=== PATIENT | male | born 1980 | race Two or more races ===

== ENCOUNTER 2017-12-29 14:58 | Emergency (ER) | payer OTHER ==
[~2017-12-29] VITALS: Ht 167.6 cm; Wt 95.7 kg
[~2017-12-29 14:58] MED LIST: CYCLOBENZAPRINE10 MG PO; NAPROXEN500 MG PO
[2017-12-29] MEDS ORDERED: AZO BLADDER CO300 MG PO (15:22)
== END 2017-12-29 17:40 | disposition home or self-care (01) ==
LOC: ED 14:58
DX: R10.32 Left lower quadrant pain (principal); Z87.891 Personal history of nicotine dependence; Z79.899 Other long term (current) drug therapy
CPT/HCPCS: 74177; 80053; 81001; 85025; 99284; Q9967

== ENCOUNTER 2021-04-16 17:42 | Emergency (ER) | payer BC ==
[~2021-04-16] VITALS: Ht 167.6 cm; Wt 95.7 kg
[~2021-04-16 17:42] MED LIST changes: +AZO BLADDER CO300 MG PO
--- NOTE | 2021-04-16 21:16 | EKG ---
[facility] [address] [facility] [place], [place] [address] Signed Normal sinus rhythm Normal ECG No previous ECGs available Confirmed by SADI LEE MD ([id number]) on 04/16/2021 9:16:10 PM Electronically Signed By: SADI LEE MD 04/16/212115 PATIENT NAME: DIANE SR JAX Electrocardiogram DATE OF : [birth year] PHYSICIAN: SADI LEE MD REPORT #: [id number] REPORT IS CONFIDENTIAL AND NOT TO BE RELEASED WITHOUT AUTHORIZATION
== END 2021-04-16 19:35 | disposition home or self-care (01) ==
LOC: ED 17:42
DX: R07.89 Other chest pain (principal); Z87.891 Personal history of nicotine dependence
CPT/HCPCS: 71046; 80053; 83735; 84484; 85025; 93005; 93010; 99285-25

== ENCOUNTER 2024-10-28 13:45 | Observation (INO) | payer BC ==
[~2024-10-28] VITALS: Ht 167.6 cm; Wt 84.1 kg
[2024-10-28] MEDS ORDERED: HYDROmorphone HCL 1 MG/ML SYR IV ONE ×2 (15:45→16:45)
[2024-10-28 17:00] LABS: BASOPHILS 0.4 % (0-2); EOSINOPHILS 1.7 % (0-6); HEMATOCRIT 47.4 % (35.0-50.0); HEMOGLOBIN 16.1 g/dL (12.0-18.0); LYMPHOCYTES 16.2 % (24-44); MCH 29.4 (27-36); MCV 86.4 fl (81-99); MONOCYTES 7.8 % (0-12); NEUTROPHILS 73.9 % (39-80); PLATELET COUNT 234 K/uL (140-440); RBC 5.48 M/ul (4.3-5.7); RDW 14.4 (10.5-15.0)
[2024-10-28] MEDS ORDERED: SODIUM CHLORIDE 0.9% 1,000 ML IV PRN (17:00)
[2024-10-28] MEDS ORDERED: ondansetron HCL 4 MG/2 ML VIAL IV ONE (17:00)
[2024-10-28 17:16] LABS: ALBUMIN/GLOBULIN RATIO 1.18 (1.1-2.4); ANION GAP 9.3 (7-21); BILIRUBIN, TOTAL 0.6 mg/dL (0.2-1.0); BUN/CREATININE RATIO 14.04 (6.0-28.6); CREATININE, SERUM 1.21 mg/dL (0.70-1.30); POTASSIUM 4.3 mmol/L (3.5-5.1); PROTEIN, TOTAL 7.4 g/dL (6.4-8.2)
[2024-10-28] MEDS ORDERED: SEVOFLURANE 250 ML BTL INH ONE (18:03)
[2024-10-28] MEDS ORDERED: HYDROmorphone HCL 1 MG/ML SYR IV PRN ×2 (19:15→22:15)
[2024-10-28] MEDS ORDERED: ondansetron HCL 4 MG/2 ML VIAL IV PRN ×3 (19:15→21:15)
[2024-10-28] MEDS ORDERED: LACTATED RINGER'S 1,000 ML IV SCH ×2 (19:15→20:30)
[2024-10-28 20:06] VITALS: BP 114/76
--- NOTE | 2024-10-28 20:20 | NUR ---
PATIENT BROUGHT TO ROOM FROM ED IN A WHEELCHAIR. PATIENT ABLE TO SELF TRANSFER FROM WHEEL CHAIR TO BED. PATIENTS ADMISSION COMPLETED. IV INFUSING PER ORDER. PATIENT DENIES ANY PAIN OR NAUSEA. PATIENTS VITALS TAKEN AND RECORDED. PATIENT UPDATED ON PLAN OF CARE AND ALL QUESTIONS ANSWERED. DR BRUNER AT BEDSIDE.
[2024-10-28] MEDS ORDERED: LACTATED RINGER'S 1,000 ML IV ONE (20:30)
[2024-10-28] MEDS ORDERED: KETOROLAC TROMETHAMINE 30 MG/ML VIAL IV PRN (20:30)
[2024-10-28] MEDS ORDERED: CEFAZOLIN SODIUM 2 GM/20 ML SYR IV ONE (20:30)
[2024-10-28] MEDS ORDERED: KETOROLAC TROMETHAMINE 30 MG/ML VIAL ONE (20:54)
[2024-10-28] MEDS ORDERED: propofoL 200 MG/20 ML VIAL ONE (20:54)
[2024-10-28] MEDS ORDERED: ondansetron HCL 4 MG/2 ML VIAL ONE (20:54)
[2024-10-28] MEDS ORDERED: DEXAMETHASONE SOD PHOS 4 MG/ML VIAL ONE (20:54)
[2024-10-28] MEDS ORDERED: SUGAMMADEX SODIUM 200 MG/2 ML ML ONE (20:55)
[2024-10-28] MEDS ORDERED: LIDOCAINE HCL 2% 5 ML SDV ONE (20:55)
[2024-10-28] MEDS ORDERED: ROCURONIUM BROMIDE 50 MG/5 ML SYR ONE (20:55)
[2024-10-28] MEDS ORDERED: MIDAZOLAM HCL 2 MG/2 ML VIAL ONE (20:55)
[2024-10-28] MEDS ORDERED: fentaNYL citrate 100 MCG/2 ML VIAL ONE (20:55)
[2024-10-28] MEDS ORDERED: FAMOTIDINE 20 MG/ 2 ML VIAL IV SCH (21:00)
[2024-10-28] MEDS ORDERED: fentaNYL citrate 50 MCG/ML SDV IV PRN (21:15)
[2024-10-28] MEDS ORDERED: IBLOOD GLUCOSE TEST STRIP 1 EA TEST VI PRN (21:15)
[2024-10-28] MEDS ORDERED: NALOXONE HCL 0.4 MG SYR IV PRN (21:15)
[2024-10-28] MEDS ORDERED: MIDAZOLAM HCL 2 MG/2 ML VIAL IV PRN (21:15)
[2024-10-28] MEDS ORDERED: ACETAMINOPHEN 1,000 MG/100 ML VIAL ONE (21:21)
[2024-10-28] MEDS ORDERED: ePHEDrine sulfate 50 MG/ML AMP ONE (21:39)
--- NOTE | 2024-10-28 22:18 | NUR ---
10/28/242217 Rosalia Donaldson 2199-PT ARRIVES TO PACU VIA STRETCHER, RESTING SEMI FOWLERS, PT NOT RESPONSIVE TO NOXIOUS STIMULI, OPA IN PLACE, MANUAL JAW THRUST REQUIRED, VSS ON 6L VIA MASK. 2204-MANUAL JAW THRUST NO LONGER NEEDED, OPA REMAINS IN PLACE, VSS ON 6L VIA MASK. 2208-PT AWAKENS ON OWN, OPA REMOVED, AND TITRATED TO RA. VSS, RR EVEN AND UNLABORED. 2209- AT BEDSIDE DISCUSSING PROCEEDURE RESULTS AND PLAN OF CARE W/ PT, ALL QUESTIONS ANSWERED. PT DENIES PAIN OR NAUSEA.
[2024-10-28 22:30] VITALS: BP 105/46
[2024-10-28 22:41] VITALS: BP 105/46
[2024-10-28] MEDS ORDERED: OXYCODONE/APAP 7.5/325 TAB PO PRN (22:45)
[2024-10-28] MEDS ORDERED: ACETAMINOPHEN 500 MG TAB PO PRN (22:45)
[2024-10-28] MEDS ORDERED: IBUPROFEN 600 MG TAB PO PRN (22:45)
--- NOTE | 2024-10-28 22:46 | NUR ---
PATIENT BROUGHT TO THE FLOOR AT 2225 FROM PACU. PATIENT DENIES ANY PAIN. HE IS HUNGRY AND JUST WANTS TO EAT. PATIENT GIVEN JELLO AND CRACKERS. FAMILY AT BEDSIDE. SCD ON, CPOX ON. VITALS WNL. IV FLUIDS RUNNING. CALL LIGHT WITHIN REACH. DENIES ANY OTHER NEEDS AT THIS TIME.
[2024-10-28 23:27] VITALS: BP 111/71
[2024-10-28 23:29] VITALS: BP 111/71
--- NOTE | 2024-10-28 23:50 | NUR ---
HOURLY VITALS TAKEN ON PATIENT. FAMILY STILL AT BEDSIDE. SEE EMAR FOR MEDICATION FOR HEADACHE. DENIES NAUSEA. PATIENT TOLERATED A SANDWHICH BOX.
[2024-10-29 00:40] VITALS: BP 103/63
--- NOTE | 2024-10-29 00:45 | NUR ---
RECEIVED REPORT FROM DAY SHIFT RN. PATIENT IS RESTING IN BED. SIDNEY RN IN ROOM AT THIS TIME TO COMPLETE VITALS
--- NOTE | 2024-10-29 00:49 | NUR ---
IN ROOM FOR VS. pt COMPLAINS OF 6-7/10 "SHARP" ABDOMINAL PAIN. PRN PAIN MEDICATION ADMINISTERED. VSS. CALL LIGHT IN REACH. pt DENIES ADDITIONAL NEEDS.
[2024-10-29 02:02] VITALS: BP 108/73
--- NOTE | 2024-10-29 02:12 | NUR ---
PATIENTS VITALS TAKEN AND RECORDED. PATIENT DENIES THE NEED TO VOID. PATIENT DENIES ANY PAIN OR NAUSEA AT THIS TIME. PATIENTS MID ABD DRESSING IS C/D/I. PATIENT IS AAOX4. PATIENT DENIES ANY FURTHER NEEDS. IV INFUSING PER ORDER.
[2024-10-29 04:01] VITALS: BP 112/64
--- NOTE | 2024-10-29 04:21 | NUR ---
PATIENT UP TO BR A SBA. PATIENT ABLE TO VOID. PATIENT IS BACK IN BED RESTING. PATIENTS VITALS TAKEN AND RECORDED. INTAKE AND OUTPUT RECORDED. PATIENT DENIES ANY NAUSEA. PATIENT REPORTS 4/10 PAIN AND DENIES THE NEED FOR INTERVENTION AT THIS TIME. PATIENTS MID ABD DRESSING IS C/D/I. PATIENT DENIES ANY FURTHER NEEDS. CALL LIGHT IN REACH. SCDS IN PLACE. IV INFUSING PER ORDER.
[2024-10-29 04:23] VITALS: BP 112/64
--- NOTE | 2024-10-29 06:23 | NUR ---
PATIENT IS RESTING IN BED WATCHING TV. PATIENT REPORTS MID ABD PAIN AT A 7/10, PRN PAIN MEDICATION GIVEN PER ORDER. PATIENT PROVIDED FRESH ICE WATER. PATIENT DENIES ANY FURTHER NEEDS. CALL LIGHT IN REACH.
--- NOTE | 2024-10-29 07:26 | NUR ---
VERBAL REPORT RECEIVED FROM SUDHEER GUSMAN. PT RESTS IN BED AWAKE AND ALERT, VISITOR X1 AT BEDSIDE. CALL LIGHT IN REACH. NO REQUESTS AT THIS TIME.
--- NOTE | 2024-10-29 08:37 | NUR ---
PATIENT IN BED AT THIS TIME. OFFICE ASST PROVIDED PATIENT WITH COFFEE AND DID HOURLY ROUNDS. CALL LIGHT WITHIN REACH, NO FURTHER NEEDS.
[2024-10-29] MEDS ORDERED: OXYCODON-ACETA1 EAC2 PO (08:59)
[2024-10-29] MEDS ORDERED: IBUPROFEN600 MG PO (08:59)
[2024-10-29] MEDS ORDERED: ACETAMINOPHEN500 MG PO (08:59)
--- NOTE | 2024-10-29 09:23 | NUR ---
UR CLINICAL REVIEW: [facility], MEETS CRITERIA FOR HERNIA REPAIR (NON-HIATAL) INCARCERATED EPIGASTRIC HERNIA REQUIRED SURGICAL REPAIR MEETS DC CRITERIA THIS AMAnthony BONILLA PPO OBS 10/28/2024 @ 1914 ORDER MATCHES REG ATHORIZATION 10/28/24-11/02/2024 REFERENCE #[id number], WILL SEND CLINICALS TODAY PLAN TO DC TO HOME TODAY.
[2024-10-29 09:32] VITALS: BP 102/59
--- NOTE | 2024-10-29 09:33 | NUR ---
PATIENT IN BED AT THIS TIME. TRAIN OPERATIONS MANAGER CHARTED VITALS AND I&O'S. CALL LIGHT WITHIN REACH, NO FURTHER NEEDS AT THIS TIME.
--- NOTE | 2024-10-29 09:45 | HP ---
[facility] [address] [place], [place] [address] Signed ADMISSION DATE: 10/28/2024 REASON FOR ADMISSION: Incarcerated strangulated epigastric hernia. HISTORY OF PRESENT ILLNESS: This 44-year-old white man works at [employer] in the [place]. He lives alone, though has a girlfriend. He is accompanied by his parents. He is known to have a hernia in the midline long-term between the xiphoid and the umbilicus, which normally reduces spontaneously lying down and not straining. On , began having vague abdominal pain and the hernia did not really go away. It progressed over time and now it is exquisitely painful and tender and presented to the emergency room where he was thoroughly evaluated by Dr. Reyes confirming a nonreducible, very tender epigastric hernia. A CT scan was performed, which confirmed the contents of the hernia primarily to be fat, probably omentum of course. He is admitted for further evaluation and care. PAST MEDICAL HISTORY: Rather unremarkable. He has had no abdominal surgery in the past. He takes no medications on a routine basis. He does have a history of psoriasis and arthritis. ALLERGIES: He has no known drug allergies. SOCIAL HISTORY: He is a former smoker. He takes no medications on a routine basis. REVIEW OF SYSTEMS: He denies any shortness of breath or chest pain. He last ate yesterday, but no eating all day today. He has had no nausea or vomiting. PHYSICAL EXAMINATION: GENERAL: A pleasant white man, who does not look systemically toxic, but does look quite uncomfortable. He is accompanied by his two parents. VITAL SIGNS: Temperature is 98.4, pulse 60, blood pressure 120/56, O2 saturation 96% on room air. Trachea is midline. Mucous membranes are slightly dry. CHEST: Clear. HEART: Regular without murmur. ABDOMEN: Nondistended. Palpation is without tenderness except in the area of the midline long-term from the xiphoid to the umbilicus where exquisite tenderness is noted Electronically Signed By: KIRT BRUNER MD 10/29/24 0945 PATIENT NAME: DIANE SR HISTORY AND PHYSICAL DATE OF : [birth year] REPORT #: [id number] PHYSICIAN: KIRT BRUNER MD PCP: NO PRIMARY CARE PHYSICIAN REPORT IS CONFIDENTIAL AND NOT TO BE RELEASED WITHOUT AUTHORIZATION [facility] [address] [place], [place] [address] Signed and a nonreducible hernia is identified. EXTREMITIES: Show no clubbing, cyanosis, or edema. LABORATORY STUDIES: Show white count 9.8, hematocrit 47.4. Chem profile is essentially normal. Creatinine slightly elevated at 1.21. Lactic acid is 1.1. Liver enzymes normal. Albumin 4.0. ASSESSMENT: The patient has an incarcerated epigastric hernia. This has been a reducible hernia up until this past week now. It is certainly not reducible by any means and quite tender and likely with strangulation of the omentum that protruded from it. Imaging studies are quite clear about the finding without sign of hollow viscus. Nevertheless, given the extreme tenderness, pain and so forth that he suffers at this time, I believe the best approach in his case would be prompt operative intervention to include reduction of the hernia and repair of the defect. Depending on the viability of the omentum that is incarcerated, resection may be required. The defect itself is relatively high for an epigastric hernia and not excessively large, which of course may account for the extreme pain he is suffering. Mesh would be implanted if the defect is greater than 2 cm. Otherwise, a primary repair would be adequate. The risk of bleeding, infection, recurrence and so forth were reviewed with the patient and his parents. They understand and he wished to proceed. MD AUNDREA Ledbetter/MCL /[id number] cc: Dr. Reyes Copies: ~ Electronically Signed By: KIRT BRUNER MD 10/29/24 0945 PATIENT NAME: DIANE SR HISTORY AND PHYSICAL DATE OF : [birth year] REPORT #: [id number] PHYSICIAN: KIRT BRUNER MD PCP: NO PRIMARY CARE PHYSICIAN REPORT IS CONFIDENTIAL AND NOT TO BE RELEASED WITHOUT AUTHORIZATION
--- NOTE | 2024-10-29 10:10 | NUR ---
DISCUSSED DISCHARGE INSTRUCTIONS WITH PT AND SPOUSE. BOTH VERBALIZE UNDERSTANDING. IV REMOVED, TIP INTACT, GAUZE AND COBAN DRESSING APPLIED TO SITE, PT TOLERATED WELL. PT DRESSED SEFT AND GATHERED BELONGINGS. VSS. PT LEAVES UNIT AMBULATORY ESCORTED BY DEJON SANTANA TO FRONT EXIT TO PRIVATE CAR DRIVEN BY SPOUSE.
--- NOTE | 2024-10-29 15:52 | OR ---
[facility] [address] [place], [place] [address] Signed DATE OF OPERATION: 10/28/2024 SURGEON: Kirt Bruner MD PREOPERATIVE DIAGNOSIS: Incarcerated strangulated epigastric hernia. POSTOPERATIVE DIAGNOSIS: Incarcerated strangulated epigastric hernia. PROCEDURE: Repair of incarcerated strangulated epigastric hernia fascial defect 1.8 cm. ANESTHESIA: General endotracheal; Queenie Boles CRNA and local 10 mL of 0.25% Marcaine with epinephrine. INDICATION: This 44-year-old white man has had a long-standing hernia in epigastric areas, which normally spontaneously reduces. On , he began having pain in the area and the hernia would not reduce despite efforts to do so. The pain worsened to the point he was intolerable and he presented to the emergency room where he was evaluated by the emergency room physician noting the incarcerated very tender hernia in the epigastric area. A CT scan was performed which showed herniated fat and no hollow viscus. Given his severe tenderness and ongoing pain despite pain medication and so forth, he is now to undergo repair of the hernia, having undergone fluid resuscitation and so forth. The risk of bleeding, infection, recurrent hernia, and need for other indicated procedures, was reviewed with him and his parents who were with him. They understand, wished to proceed. FINDINGS: The fascial defect was at 1.8 cm. Herniated properitoneal fat was noted. It was inflamed and edematous, but certainly not infarcted in any way. The fascia was quite bernstein and did not require support with mesh. Primary closure was accomplished. DESCRIPTION OF PROCEDURE: The patient was brought to the operating room, given a general endotracheal anesthetic. Preoperative antibiotic Ancef was given. Sequential compression device stockings were used and heparin subcutaneously administered. The abdomen was clipped and prepared with Electronically Signed By: KIRT BRUNER MD 10/29/24 1552 PATIENT NAME: DIANE SR OPERATIVE REPORT DATE OF : [birth year] REPORT #: [id number] PHYSICIAN: KIRT BRUNER MD PCP: NO PRIMARY CARE PHYSICIAN REPORT IS CONFIDENTIAL AND NOT TO BE RELEASED WITHOUT AUTHORIZATION [facility] [address] [place], [place] [address] Signed a chlorhexidine solution and draped sterilely. The palpable mass was not reducible even with relaxation. An incision was made directly over it in a vertical configuration. Dissection was carried through the subcutaneous tissue identifying an edematous hernia sac with fatty tissue within the sac. It was skeletonized at the fascial layer, but could not be reduced despite that. On that basis, a right angle clamp was placed in the fascia cephalad in the defect, incising it with all due care using electrocautery. This allowed enough relaxation that the hernia sac could be more easily manipulated. It was opened and found to have properitoneal fat and a fair amount of inflammation. It was inverted into the properitoneal space as it was not infarcted. The defect was measured and found to be 1.8 cm. I would normally close such a defect in a transverse manner. On this occasion, a vertical closure was deemed more appropriate. The fascial edges were quite bernstein and mesh would not generally be required given the small size of the defect and the health of the fascial layer. The fascial defect was closed with interrupted 0 Prolene suture in a vertical mattress configuration. Irrigation was undertaken. 10 mL of 0.25% Marcaine was injected locally. The subcutaneous tissue was reapproximated with interrupted 2-0 Vicryl and the skin closed with running subcuticular 3-0 Vicryl. Steri-Strips were applied as was an Acticoat dressing. He was extubated in the operating room and taken to recovery room. Blood loss was minimal. Complications none. Sponge, needle and counts reported as correct x3. MD AUNDREA Ledbetter/MCL /[id number] cc: Elroy Connell Copies: ~ Electronically Signed By: KIRT BRUNER MD 10/29/24 1552 PATIENT NAME: DIANE SR OPERATIVE REPORT DATE OF : [birth year] REPORT #: [id number] PHYSICIAN: KIRT BRUNER MD PCP: NO PRIMARY CARE PHYSICIAN REPORT IS CONFIDENTIAL AND NOT TO BE RELEASED WITHOUT AUTHORIZATION
== END 2024-10-29 10:10 | disposition home or self-care (01) ==
LOC: ED 13:45 → MS 13:46
PROVIDERS: Emergency Medicine; ADMIT Surgery; ATTEND Surgery
PROC: 0WQF0ZZ Repair Abdominal Wall, Open Approach (ICD-10-PCS; principal; 2024-10-28 21:33)
DX: K43.6 Other and unspecified ventral hernia with obstruction, without gangrene (principal); Z87.891 Personal history of nicotine dependence
CPT/HCPCS: 00750; 36415; 74177; 80053; 83605; 83690; 85025; 94762; 96361; 96375; 96376; 99285-25; A9270; G0378; J0131; J0690; J1100; J1171; J1885; J2003; J2250; J2405; J2704; J3010; J3490; J7030; J7121

== ENCOUNTER 2024-12-17 07:28 | Day surgery (SDC) | payer BC ==
[~2024-12-17] VITALS: Ht 167.6 cm; Wt 81.8 kg
[~2024-12-17 07:28] MED LIST changes: +ACETAMINOPHEN500 MG PO; +IBLOOD GLUCOSE TEST STRIP 1 EA TEST VI PRN; +IBUPROFEN600 MG PO; +LACTATED RINGER'S 1,000 ML IV SCH; +LIDOCAINE HCL 1% 5 ML SDV INJ ONE; +LIDOCAINE HCL 4% 50 ML BTL TOP SCH; +MIDAZOLAM HCL 5 MG/5 ML VIAL IV PRN; +OXYCODON-ACETA1 EAC2 PO; +fentaNYL citrate 100 MCG/2 ML VIAL IV PRN
[2024-12-17 07:40] VITALS: BP 106/71
[2024-12-17] MEDS ORDERED: FISH OIL 1,001000 MG PO (07:42)
[2024-12-17] MEDS ORDERED: K2 PLUS D3 TAB1 EACH PO (07:42)
[2024-12-17] MEDS ORDERED: VITAMIN C500 M4 PO (07:43)
[2024-12-17] MEDS ORDERED: CREATINE100 GM PO (07:43)
[2024-12-17] MEDS ORDERED: MIDAZOLAM HCL 5 MG/5 ML VIAL ONE (08:24)
[2024-12-17] MEDS ORDERED: fentaNYL citrate 100 MCG/2 ML VIAL ONE (08:25)
--- NOTE | 2024-12-17 09:21 | NUR ---
12/17/24 0921 Rosalia Donaldson 0904-PT ARRIVES TO PACU VIA STRETCHER, RESTING ON LT SIDE, PT A+O X4, DENIES PAIN OR NAUSEA, VSS ON 2L VIA NC. 0910-PT TITRATED TO RA, VS REMAIN STABLE. AT BEDSIDE TO DISCUSS PROCEEDURE RESULTS AND PLAN OF CARE W/ PT, ALL QUESTIONS ANSWERED. 15-PT SITTING UP IN BED SIPPING ON COFFEE, DENIES PAIN OR NAUSEA, VSS ON RA.
[2024-12-17 09:30] VITALS: BP 111/72
--- NOTE | 2024-12-17 15:05 | OR ---
[facility] [address] [place], [place] [address] Signed DATE OF OPERATION: 12/17/2024 SURGEON: Kirt Bruner MD PREOPERATIVE DIAGNOSIS: Colon screening. POSTOPERATIVE DIAGNOSIS: Polyps x1 at 20 cm. PROCEDURE: Total colonoscopy to cecum with cold snare polypectomy x1. ANESTHESIA: Intravenous sedation fentanyl 200 mcg and Versed 10 mg, total. INDICATION: This 44-year-old white man is a patient of RICHARD Patricio. He underwent repair of an incarcerated epigastric hernia with primary repair without implantation of Prolene mesh on October 28, 2024. He has recovered fully from that. The patient is of an age that colon screening is appropriate. He has no current symptoms of bleeding, diarrhea, or constipation and no family history of colon cancer. He is admitted at this time to undergo colonoscopy for screening. He understands the risk of bleeding, infection, and perforation. FINDINGS: The prep was good. Complete colonoscopy was undertaken to cecum with full intubation of the cecum. He had one sessile polyp at 20 cm in the sigmoid, which was excised with cold snare technique. The remaining colon and rectum were normal. DESCRIPTION OF PROCEDURE: The patient was brought to the endoscopy suite and placed in lateral decubitus position, given intravenous sedation to the point of slurred speech and nystagmus. Digital rectal examination was normal. Full cardiopulmonary monitoring was maintained. An Olympus video colonoscope was passed in the rectum and manipulated throughout the colon ultimately intubating the cecum itself. The ileocecal valve and appendiceal orifice were normal. Scope was withdrawn. Examination throughout showed no sign of abnormality until approximately 20 cm from the anal verge where a sessile polyp was noted, this was excised with cold snare technique. The polyp was withdrawn, offloaded and scope reintroduced and examination of left colon and sigmoid once again undertaken. The Electronically Signed By: KIRT BRUNER MD 12/17/24 1505 PATIENT NAME: DIANE SR OPERATIVE REPORT DATE OF : [birth year] REPORT #: [id number] PHYSICIAN: KIRT BRUNER MD PCP: NILES LOPEZ PAC REPORT IS CONFIDENTIAL AND NOT TO BE RELEASED WITHOUT AUTHORIZATION [facility] [address] [place], [place] [address] Signed polypectomy site was hemostatic. Further withdrawal showed no other abnormality. Retroflexed view was normal. Scope was removed. The patient was taken to recovery room in good condition. CONCLUDING DIAGNOSIS: Polyps x1. PLAN: Recommend repeat colonoscopy in 7 to 10 years, sooner if symptoms should develop. He will return to the ongoing care of RICHARD Patricio. MD AUNDREA Ledbetter/FERNANDA /[id number] cc: Niles Lopez PA-C Copies: ~ Electronically Signed By: KIRT BRUNER MD 12/17/24 1505 PATIENT NAME: DIANE SR OPERATIVE REPORT DATE OF : [birth year] REPORT #: [id number] PHYSICIAN: KIRT BRUNER MD PCP: NILES LOPEZ PAC REPORT IS CONFIDENTIAL AND NOT TO BE RELEASED WITHOUT AUTHORIZATION
--- NOTE | 2024-12-20 18:08 | PATH ---
[facility] [address] [facility] [place], [place] [address] Signed SPECIMEN(S): A SIGMOID POLYP AT 2O CM SPECIMEN SOURCE: A. SIGMOID POLYP AT 2O CM CLINICAL HISTORY: Screening FINAL PATHOLOGIC DIAGNOSIS: Sigmoid polyp at 20 cm: - Sessile serrated adenoma. - No dysplasia or malignancy identified. [facility] MICROSCOPIC EXAMINATION: Histologic sections of all submitted blocks are examined by light microscopy. These findings, together with the gross examination, support the pathologic diagnosis. GROSS DESCRIPTION: The specimen, labeled and designated "Viktor, sigmoid polyp at 20 cm," is received in formalin and consists of one perez soft tissue fragment, 0.5 cm. Entirely submitted in (A1). VB (under the direct supervision of a pathologist) The Gross Description was prepared using a voice recognition system. The report was reviewed for accuracy; however, sound-alike word errors, addition and/or deletions may occur. If there is any question about this report, please contact Client Services. ADDITIONAL NOTES: Immunohistochemical and/or in situ hybridization studies if performed in this case included appropriate positive controls that reacted as expected. This test was developed and its performance characteristics determined by [facility]. It has not been cleared or approved by the U.S. Food and Drug Administration. The FDA has determined that such clearance or approval is not necessary. This test is used for clinical purposes. It should not be regarded as investigational or for research. [facility] is certified under the Clinical Laboratory Improvement Amendments of 1988 (CLIA) as qualified to perform high complexity clinical laboratory testing. PATIENT NAME: DIANE SR PATHOLOGY DATE OF : [birth year] REPORT #: [id number] PHYSICIAN: JT JACOBS PCP: NILES LOPEZ PAC REPORT IS CONFIDENTIAL AND NOT TO BE RELEASED WITHOUT AUTHORIZATION [address] [address] Signed PERFORMING LABORATORY: Technical component was performed by [facility], [address] [place] [address] (CLIA# [id number]). Professional interpretation was performed by [facility], [address] [place] [id number] (CLIA#: [id number]). Diagnostician: Robe Castillo MD Pathologist Electronically Signed 12/20/2024 Copies: ~ PATIENT NAME: DIANE SR PATHOLOGY DATE OF : [birth year] REPORT #: [id number] PHYSICIAN: JT JACOBS PCP: NILES LOPEZ PAC REPORT IS CONFIDENTIAL AND NOT TO BE RELEASED WITHOUT AUTHORIZATION
== END 2024-12-17 09:38 | disposition home or self-care (01) ==
LOC: OPS 07:28 → DS 07:28 → OPS 08:30 → DS 08:30 → OPS 09:38
PROVIDERS: ATTEND Surgery
PROC: 0DBN8ZX Excision of Sigmoid Colon, Via Natural or Artificial Opening Endoscopic, Diagnostic (ICD-10-PCS; principal; 2024-12-17 08:30)
DX: Z12.11 Encounter for screening for malignant neoplasm of colon (principal); D12.5 Benign neoplasm of sigmoid colon; K43.6 Other and unspecified ventral hernia with obstruction, without gangrene
CPT/HCPCS: 99153; G0500; J2250; J3010; J7121

== ENCOUNTER 2025-04-26 07:50 | Day surgery (SDC) | payer BC ==
[~2025-04-26] VITALS: Ht 167.6 cm; Wt 82.0 kg
[~2025-04-26 07:50] MED LIST changes: +CEFAZOLIN SODIUM 2 GM in SODIUM CHLORIDE 0.9% 100 ML IV SCH; +CREATINE100 GM PO; +DEXAMETHASONE SOD PHOS 4 MG/ML VIAL ONE; +FISH OIL 1,001000 MG PO; +HEParin SOD (PORCINE) 5,000 UNIT/ML SDV SUB-Q SCH; +K2 PLUS D3 TAB1 EACH PO; +KETOROLAC TROMETHAMINE 30 MG/ML VIAL ONE; +LIDOCAINE HCL 1% 30 ML SDV ONE; +LIDOCAINE HCL 2% 5 ML SDV ONE; -LIDOCAINE HCL 4% 50 ML BTL TOP SCH; +MIDAZOLAM HCL 2 MG/2 ML VIAL ONE; -MIDAZOLAM HCL 5 MG/5 ML VIAL IV PRN; +ROCURONIUM BROMIDE 50 MG/5 ML SYR ONE; +SUGAMMADEX SODIUM 200 MG/2 ML ML ONE; +VITAMIN C500 M4 PO; +[UNRECOGNIZED DRUG - OTHER] MISC; -fentaNYL citrate 100 MCG/2 ML VIAL IV PRN; +fentaNYL citrate 100 MCG/2 ML VIAL ONE
[2025-04-26 08:01] VITALS: BP 110/63
[2025-04-26] MEDS ORDERED: PHENYLEPHRINE HCL IN 0.9% NACL 1 MG/10 ML SYR ONE (09:37)
[2025-04-26] MEDS ORDERED: ACETAMINOPHEN 1,000 MG/100 ML VIAL ONE (09:57)
[2025-04-26] MEDS ORDERED: LACTATED RINGER'S 1,000 ML IV ONE (10:09)
[2025-04-26] MEDS ORDERED: IBUPROFEN600 MG PO (10:52)
[2025-04-26] MEDS ORDERED: OXYCODON-ACETA1 EAC2 PO (10:52)
[2025-04-26] MEDS ORDERED: ACETAMINOPHEN500 MG PO (10:53)
--- NOTE | 2025-04-26 10:55 | NUR ---
04/26/25 1055 Pura Lambert 1040- PT PRESENTS TO PACU, NON REACTIVE TO STIMULUS, SEMI BOTELLO POSITION. OPA IN PLACE, BREATHING EVEN AND NON LABORED, O2 AT 6L PER MASK. INTERMITTENT HEAD POSITIONING AND CHIN LIFT NEEDED TO MAINTAIN AIRWAY. ABD SOFT, NON DISTENDED, DRESSING IN PLACE, CDI. LR INFUSING TO RFA IV. ALL MONITORS IN PLACE. 1052- PT WAKES TO VERBAL AND TACTILE STIMULUS, STARTLED. REORIENTED TO TIME AND PLACE. PT DENIES NAUSEA, C/O 6/10 PAIN BUT TOLERABLE AT THIS TIME.
[2025-04-26] MEDS ORDERED: ACETAMINOPHEN 500 MG TAB PO PRN (11:00)
[2025-04-26] MEDS ORDERED: OXYCODONE/APAP 7.5/325 TAB PO PRN (11:00)
[2025-04-26] MEDS ORDERED: NALOXONE HCL 0.4 MG SYR IV PRN (11:00)
[2025-04-26] MEDS ORDERED: IBUPROFEN 600 MG TAB PO PRN (11:00)
[2025-04-26] MEDS ORDERED: LACTATED RINGER'S 1,000 ML IV SCH (11:00)
[2025-04-26] MEDS ORDERED: SEVOFLURANE 250 ML BTL INH ONE (11:08)
--- NOTE | 2025-04-26 11:10 | NUR ---
1110-PT BACK TO ROOM FROM PACU ON RA. RECEIVED REPORT FROM ROMINA WILLARD. PT IS AWAKE. RESP EVEN AND UNLABORED. RATES PAIN 3/10. PT IS DRINKING WATER AND COFFEE. PT EATING JELLO AND CRACKERS. PARTNER AT BEDSIDE. CALL LIGHT WITHIN REACH.
[2025-04-26 11:11] VITALS: BP 106/63
--- NOTE | 2025-04-26 11:28 | NUR ---
1124-PT RATES PAIN A 5-6/10 NOW AND WOULD LIKE PAIN MEDICAITON. MEDICATION GIVEN PER EMAR.
[2025-04-26 12:12] VITALS: BP 121/63
--- NOTE | 2025-04-26 12:35 | NUR ---
1235-PT AMBUALTES TO BATHROOM. GAIT STEADY AND TOLERATED WELL. PT VOIDS 300ML OF DARK URINE. 1240-PT BACK TO ROOM. PT READY TO GO HOME. PT WILL GET DRESSED.
--- NOTE | 2025-04-26 13:08 | NUR ---
1255 IV DISCONTINUED FOR DISCHARGE. DISCHARGE INFORMATION GONE OVER WITH PT AND SPOUSE. NO QUESTIONS AT THIS TIME. 1300 PT DISCHARGED FROM DAY SURGERY, PT ABLE TO GET UP FROM BED AND AMBULATE TO WHEELCHAIR WITHOUT ASSISTANCE. PT WHEELED OUT TO THE FRONT OF THE HOSPITAL TO PT'S SPOUSE'S CAR. PT HAS DISCHARGE PAPERWORK IN HAND AND PRESCRIPION IN HAND.
--- NOTE | 2025-04-28 13:51 | OR ---
[facility] [address] [place], [place] [address] Signed DATE OF OPERATION: 04/26/2025 SURGEON: Kirt Bruner MD PREOPERATIVE DIAGNOSIS: Left spigelian hernia. POSTOPERATIVE DIAGNOSIS: Left spigelian hernia defect 4.2 cm. PROCEDURE: Repair of left spigelian hernia 4.2 cm with closure of fascia and overlay application of Prolene mesh (ProGrip type). ANESTHESIA: General endotracheal; Queenie Boles CRNA and local 10 mL of 0.25% Marcaine with epinephrine. INDICATION: This 44-year-old white man has recently notably having undergone the epigastric hernia repair. Since that time, several months ago he has developed an episodically nonreducible bulge in the left pararectus area somewhat cephalad to the umbilicus. Imaging study confirms findings consistent with spigelian hernia. He is admitted to undergo repair. He understands the risk of bleeding, infection, and recurrence and wished to proceed. FINDINGS: The level of the hernia was higher than the umbilicus, which is slightly unusual, but a distinct fascial defect was noted 4.2 cm in size. Reduction of the hernia was without problem. Primary closure of the defect was undertaken with application of Prolene ProGrip mesh over the repair, but beneath the lateral aspect of the rectus abdominis and certainly well below the external oblique. There were no complications. DESCRIPTION OF PROCEDURE: The patient was brought to the operating room, given a general endotracheal anesthetic. Preoperative antibiotic Ancef was given. Sequential compression device stockings were used. The abdomen was clipped and prepared with a chlorhexidine solution and draped sterilely. The previously designated site of the hernia had been marked in the day surgery area in concert with the patient's agreement. The incision was made directly over this area. Dissection was carried through the subcutaneous tissue with Electronically Signed By: KIRT BRUNER MD 04/28/25 1350 PATIENT NAME: DIANE SR OPERATIVE REPORT DATE OF : 76 REPORT #: [id number] PHYSICIAN: KIRT BRUNER MD PCP: NILES LOPEZ PAC REPORT IS CONFIDENTIAL AND NOT TO BE RELEASED WITHOUT AUTHORIZATION [facility] [address] [place], [place] [address] Signed electrocautery. The attenuated fibers of the external oblique were incised revealing an underlying fatty herniated area. This was free from the surrounding fascia and the defect between the layers easily defined. The hernia sac was freed more fully and placed at the properitoneal space. Immediately, the rectus abdominis muscle was somewhat freed from the properitoneal fat. A segment of Prolene ProGrip mesh was cut to a circular configuration and considered to be inserted below the fascial defect, but given the anatomy related to the rectus abdominis it appeared more appropriate to simply close the fascial defect with 0 Prolene sutures, which was then accomplished. The Prolene mesh was then placed over the defect securing the lateral aspect of the rectus abdominis tendon and overlying external oblique. The external oblique was reapproximated with 0 Prolene suture as well. Irrigation was undertaken and 10 mL of 0.25% Marcaine with epinephrine was injected locally. The Christine's layer was reapproximated with interrupted 2-0 Vicryl and the skin closed with running subcuticular 3-0 Vicryl. Steri-Strips were applied as was an Acticoat dressing. He was ultimately extubated and transferred to the recovery room in good condition having suffered no complication. Sponge, needle, and instrument counts were reported as correct x3. MD AUNDREA Ledbetter/MCL /[id number] cc: Niles Lopez PA-C Copies: ~ Electronically Signed By: KIRT BRUNER MD 04/28/25 1351 PATIENT NAME: DIANE SR OPERATIVE REPORT DATE OF : 76 REPORT #: [id number] PHYSICIAN: KIRT BRUNER MD PCP: NILES LOPEZ PAC REPORT IS CONFIDENTIAL AND NOT TO BE RELEASED WITHOUT AUTHORIZATION
== END 2025-04-26 13:00 | disposition home or self-care (01) ==
LOC: DS 07:50
PROVIDERS: ATTEND Surgery
PROC: 0WUF0JZ Supplement Abdominal Wall with Synthetic Substitute, Open Approach (ICD-10-PCS; principal; 2025-04-26 09:20)
DX: K43.6 Other and unspecified ventral hernia with obstruction, without gangrene (principal)
CPT/HCPCS: 00750; 96374; C1781; J0131; J0165; J0688; J1100; J1644; J1885; J2003; J2250; J2405; J2704; J3010; J3490; J7121